=== PATIENT | female | born 1990 | race African-American/Black ===

== ENCOUNTER → 2016-07-30 | Day surgery (SDC) | payer OTHER | END | disposition home or self-care (01) | LOC: FAS 09:12 | DX: S82.52XA Displaced fracture of medial malleolus of left tibia, initial encounter for closed fracture (principal); F17.210 Nicotine dependence, cigarettes, uncomplicated; Z79.1 Long term (current) use of non-steroidal anti-inflammatories (NSAID) | CPT/HCPCS: 73600; 76000; 84703; C1713; C1769; J2405; J2704; J2795; J3010 ==